=== PATIENT | female | born 1970 | race Caucasian/White ===

== ENCOUNTER 2018-06-03 16:12 | Emergency (ER) | payer BC, SELFPAY ==
[2018-06-03 16:14] VITALS: BP 165/105; PULSE 92; RESP 20; TEMP 36.5; O2SAT 99; BMI 41.1
--- NOTE | 2018-06-03 16:21 | DI.CT.S_ITS ---
PROCEDURE: CT HEAD/BRAIN WO CON INDICATIONS: headache, facial numbness TECHNIQUE: Noncontrast 4.5 mm thick angled axial sections acquired from the foramen magnum to the vertex, with coronal and sagittal reformats. For radiation dose reduction, the following was used: automated exposure control, adjustment of mA and/or kV according to patient size. COMPARISON: None. FINDINGS: Image quality: Excellent. CSF spaces: Basal cisterns are patent. No extra-axial fluid collections. Ventricles are normal in size and shape. Brain: No midline shift. No intracranial masses or hemorrhage. John-white matter interface is normal. Skull and face: Calvarium and visualized facial bones are intact, without suspicious lesions. Sinuses: Mucosal thickening noted in the right maxillary sinus. The mastoids are clear. IMPRESSION: 1. No acute intracranial disease process. 2. Right maxillary sinus mild mucosal thickening. Dictated by: Rhoda Encarnacion MD, PhD on 06/03/2018 at 16:50 Approved by: Rhoda Encarnacion MD, PhD on 06/03/2018 at 16:52
--- NOTE | 2018-06-03 17:09 | ED.NEUROSD ---
HPI - Neuro Symptoms/Deficit General Chief Complaint: Neuro Symptoms/Deficit Stated Complaint: blood pressure issues and facial numbness Time Seen by Provider: 06/03/18 16:59 Source: patient Mode of arrival: ambulatory Limitations: no limitations History of Present Illness HPI Narrative: 47-year-old nonsmoker, otherwise healthy presents with chief complaint sudden-onset occipital headache few hours ago while grocery shopping. She complains only of occipital headache and perhaps some facial numbness. She has elevated blood pressure and had been on medications in the past but has not take any in quite some time. She denies focal neurologic findings such as numbness, tingling or weakness in her extremities. She is absent of any visual or speech troubles. She denies use of blood thinners, fever or any neck pain. Onset (ago): hour(s) History of same: No Severity: mild Quality: tingling (Of face) Relieving factors: none Exacerbating factors: none Context: sudden onset On Anticoagulants: No Associated symptoms: denies other symptoms Related Data Home Medications Medication Instructions Recorded Confirmed celecoxib [Celebrex] 50 mg PO Q DAY #0 02/04/17 Allergies Allergy/AdvReac Type Severity Reaction Status Date / Time morphine [MORPHINE] Allergy Severe emesis, Verified 06/03/18 18:05 dizzy Review of Systems Review of Systems All systems reviewed & are unremarkable except as noted in HPI and below Constitutional Denies chills, Denies fever(s), Reports headache(s), Denies lethargy and Denies weakness Eyes Denies change in vision, Denies eye discharge, Denies irritation and Denies loss of vision ENT Ears, Nose, Mouth, and Throat: Denies change in voice, Reports headache(s), Denies neck pain and Denies sore throat Cardiovascular Denies chest pain, Denies irregular heart rhythm, Denies lightheadedness, Denies palpitations, Denies dyspnea, Denies dyspnea on exertion and Denies orthopnea Respiratory Denies cough, Denies dyspnea, Denies dyspnea on exertion and Denies wheezing Gastrointestinal Gastrointestinal: Denies abdominal pain, Denies change in bowel habits, Denies diarrhea, Denies nausea and Denies vomiting Genitourinary Denies hematuria, Denies flank pain, Denies urinary incontinence and Denies urinary urgency Musculoskeletal Denies neck pain and Reports tingling Integumentary/Breasts Denies pruritus, Denies erythema, Denies rash and Denies wounds Neurologic Denies confusion, Reports headache(s), Denies loss of vision, Reports tingling and Denies weakness Psychiatric Denies anxiety, Denies confusion, Denies depression, Denies homicidal ideation and Denies suicidal ideation Endocrine Denies palpitations Hematologic/Lymphatic Denies easy bruising Allergic/Immunologic Denies wheezing [facility] Social History Smoking Status: Never smoker Exam Narrative Exam Narrative: GENERAL: This is a well-nourished, well-developed patient, in mild distress. HEAD: Atraumatic. Normocephalic. No temporal or scalp tenderness. EYES: Pupils equal round and reactive. Extraocular motions intact. No scleral icterus. No injection or drainage. ENT: Nose without bleeding, purulent drainage or septal hematoma. Throat without erythema, tonsillar hypertrophy or exudate. Uvula midline. Airway patent. NECK: Trachea midline. No JVD or lymphadenopathy. Supple, nontender, no meningeal signs. CARDIOVASCULAR: Regular rate and rhythm without murmurs, gallops, or rubs. RESPIRATORY: Clear to auscultation. Breath sounds equal bilaterally. No wheezes, rales, or rhonchi. GASTROINTESTINAL: Abdomen soft, non-tender, nondistended. No hepato-splenomegaly, or palpable masses. No guarding. EXTREMITIES: No clubbing, cyanosis, or edema. No joint tenderness, effusion, or edema noted. BACK: Nontender without deformity or crepitance. No flank tenderness. NEURO: AOx3. SKIN: No rash or erythema. NIH Stroke Scale 1a. LOC: Patient is alert and keenly responsive (0) 1b. LOC Questions: Patient answers both LOC questions accurately (0) 1c. LOC Commands: Patient performs both tasks correctly (0) 2. Best Gaze: Normal (0) 3. Visual: No visual loss (0) 4. Facial palsy: Normal symmetrical movements (0) 5. Motor arm: No drift (0) 6. Motor leg: No drift (0) 7. Limb ataxia: Absent (0) 8. Sensory: Normal (0) 9. Best language: No aphasia; normal (0) 10. Dysarthria: Normal (0) 11. Extinction and inattention: No abnormality (0) NIHSS: 0 Initial Vital Signs Initial Vital Signs: Vital Signs Temperature 97.7 F 06/03/18 16:14 Pulse Rate 92 H 06/03/18 16:14 Respiratory Rate 20 06/03/18 16:14 Blood Pressure 165/105 H 06/03/18 16:14 Pulse Oximetry 99 06/03/18 16:14 Course Orders Ordered: ED Orders 06/03/18 16:21 CT head/brain wo con Stat 06/03/18 18:20 Basic Metabolic Panel Stat Complete Blood Count AUTO DIFF Stat Discontinued Medications Dexamethasone (Decadron) 10 mg IV NOW ONE Stop: 06/03/18 17:22 Last Admin: 06/03/18 18:06 Dose: 10 mg Sodium Chloride (Normal Saline 0.9%) 1,000 mls @ 1,000 mls/hr IV BOLUS ONE Stop: 06/03/18 18:20 Last Admin: 06/03/18 18:05 Dose: 1,000 mls/hr Ketorolac Tromethamine (Toradol) 15 mg IV NOW ONE Stop: 06/03/18 17:22 Last Admin: 06/03/18 18:06 Dose: 15 mg Metoclopramide HCl (Reglan) 10 mg IV NOW ONE Stop: 06/03/18 17:22 Last Admin: 06/03/18 18:06 Dose: 10 mg Reevaluation(s) Reevaluation #1: Patient has a near complete resolution of symptoms after above-stated therapies Vital Signs - 8 hr 06/03/18 16:14 06/03/18 18:31 Temperature 97.7 F Pulse Rate 92 H 73 Respiratory Rate 20 16 Blood Pressure 165/105 H Blood Pressure [Left Arm] 121/83 Pulse Oximetry 99 97 MDM - Neuro Symptoms/Deficit Differential Diagnosis Likely subarachnoid hemorrhage, cerebrovascular accident, multiple sclerosis and transient cerebral ischemia Medical Records Attestation: I reviewed the patient's medical records. Lab Data Attestation: I reviewed the patient's lab results. Result diagrams: 06/03/18 18:20 06/03/18 18:20 Lab Results 06/03/18 06/03/18 Range/Units 18:20 18:20 WBC 8.7 (4.5-11.0) X10^3/uL RBC 4.77 (4.0-5.2) X10^6/uL Hgb 14.1 (12.0-16.0) g/dL Hct 41.6 (36-46) % MCV 87.1 (80-100) fL MCH 29.5 (26-34) PG MCHC 33.8 (30-36) % RDW 13.0 (11.6-14.8) % Plt Count 214 (150-400) X10^3/uL Neut % (Auto) 63.9 (50-75) % Lymph % (Auto) 28.1 (25-40) % Chase % (Auto) 6.1 (3-14) % Eos % (Auto) 1.4 L (2-4) % Baso % (Auto) 0.5 (0-2) % Neut # (Auto) 5500 (0110-1054) /uL Sodium 145 (137-145) mmol/L Potassium 3.6 (3.4-5.1) mmol/L Chloride 108 H (98-107) mmol/L Carbon Dioxide 25 (22-32) mmol/L BUN 15 (7-17) mg/dL Creatinine 0.70 (0.52-1.04) mg/dL Estimated GFR > 60.0 (>60) mL/min BUN/Creatinine Ratio 21.4 (6-22) Glucose 97 (70-100) mg/dL Calcium 8.9 (8.4-10.2) mg/dL Imaging Data CT scan - head: Radiologist's impression: [place] [address] CT Scan Report Signed Patient: Alberta Madera#: [id number] : 1970Acct:[id number] Age/Sex: 47 / FDate of Service: 06/03/18 Loc: ED Accession Number: [id number] Procedure: CT head/brain wo con Ordering Provider: Gadiel Echevarria D.O. PROCEDURE: CT HEAD/BRAIN WO CON INDICATIONS: headache, facial numbness TECHNIQUE: Noncontrast 4.5 mm thick angled axial sections acquired from the foramen magnum to the vertex, with coronal and sagittal reformats. For radiation dose reduction, the following was used: automated exposure control, adjustment of mA and/or kV according to patient size. COMPARISON: None. FINDINGS: Image quality: Excellent. CSF spaces: Basal cisterns are patent. No extra-axial fluid collections. Ventricles are normal in size and shape. Brain: No midline shift. No intracranial masses or hemorrhage. John-white matter interface is normal. Skull and face: Calvarium and visualized facial bones are intact, without suspicious lesions. Sinuses: Mucosal thickening noted in the right maxillary sinus. The mastoids are clear. IMPRESSION: 1. No acute intracranial disease process. 2. Right maxillary sinus mild mucosal thickening. Dictated by: Rhoda Encarnacion MD, PhD on 06/03/2018 at 16:50 Approved by: Rhoda Encarnacion MD, PhD on 06/03/2018 at 16:52 [facility] Narrative Medical decision making narrative: Subarachnoid hemorrhage considered as an etiology of her headache given sudden onset and severity, however CT was negative only a few hours after onset of symptoms, a time frame in which it is highly sensitive. Furthermore her symptoms improved with migrating control Hypertensive emergency considered as the cause however blood pressure dropped to the 120s with treatment of headache alone. Migraine or a typical migraine considered most likely etiology given response to above-stated therapies Discharge Plan Departure Patient Disposition: Home Clinical Impression: Hypertension, Headache Instructions: DI for Headache Activity Restrictions/Additional Instructions: *You have been diagnosed with [ hypertension and headache ] *What to do: *continue to take medications as directed *Follow up with your primary care provider in 2-3 days, call for an appointment. Let them know you were seen in the Emergency Department and that we ask that you be seen in follow up *Return to ER if you should have any new, worsening or concerning symptom Prescriptions: No Action celecoxib [Celebrex] 50 MG capsule 50 mg PO Q DAY Qty: 0 RF: 0 Referrals: Colette Bennett PA-C [Primary Care Provider] -
--- NOTE | 2018-06-03 18:01 | ED_ITS ---
HPI - Neuro Symptoms/Deficit General Chief Complaint: Neuro Symptoms/Deficit Stated Complaint: blood pressure issues and facial numbness Time Seen by Provider: 06/03/18 16:59 Source: patient Mode of arrival: ambulatory Limitations: no limitations History of Present Illness HPI Narrative: 47-year-old nonsmoker, otherwise healthy presents with chief complaint sudden-onset occipital headache few hours ago while grocery shopping. She complains only of occipital headache and perhaps some facial numbness. She has elevated blood pressure and had been on medications in the past but has not take any in quite some time. She denies focal neurologic findings such as numbness, tingling or weakness in her extremities. She is absent of any visual or speech troubles. She denies use of blood thinners, fever or any neck pain. Onset (ago): hour(s) History of same: No Severity: mild Quality: tingling (Of face) Relieving factors: none Exacerbating factors: none Context: sudden onset On Anticoagulants: No Associated symptoms: denies other symptoms Related Data Home Medications Medication Instructions Recorded Confirmed celecoxib [Celebrex] 50 mg PO Q DAY #0 02/04/17 Allergies Allergy/AdvReac Type Severity Reaction Status Date / Time morphine [MORPHINE] Allergy Severe emesis, Verified 06/03/18 18:05 dizzy Review of Systems Review of Systems All systems reviewed & are unremarkable except as noted in HPI and below Constitutional Denies chills, Denies fever(s), Reports headache(s), Denies lethargy and Denies weakness Eyes Denies change in vision, Denies eye discharge, Denies irritation and Denies loss of vision ENT Ears, Nose, Mouth, and Throat: Denies change in voice, Reports headache(s), Denies neck pain and Denies sore throat Cardiovascular Denies chest pain, Denies irregular heart rhythm, Denies lightheadedness, Denies palpitations, Denies dyspnea, Denies dyspnea on exertion and Denies orthopnea Respiratory Denies cough, Denies dyspnea, Denies dyspnea on exertion and Denies wheezing Gastrointestinal Gastrointestinal: Denies abdominal pain, Denies change in bowel habits, Denies diarrhea, Denies nausea and Denies vomiting Genitourinary Denies hematuria, Denies flank pain, Denies urinary incontinence and Denies urinary urgency Musculoskeletal Denies neck pain and Reports tingling Integumentary/Breasts Denies pruritus, Denies erythema, Denies rash and Denies wounds Neurologic Denies confusion, Reports headache(s), Denies loss of vision, Reports tingling and Denies weakness Psychiatric Denies anxiety, Denies confusion, Denies depression, Denies homicidal ideation and Denies suicidal ideation Endocrine Denies palpitations Hematologic/Lymphatic Denies easy bruising Allergic/Immunologic Denies wheezing [facility] Social History Smoking Status: Never smoker Exam Narrative Exam Narrative: GENERAL: This is a well-nourished, well-developed patient, in mild distress. HEAD: Atraumatic. Normocephalic. No temporal or scalp tenderness. EYES: Pupils equal round and reactive. Extraocular motions intact. No scleral icterus. No injection or drainage. ENT: Nose without bleeding, purulent drainage or septal hematoma. Throat without erythema, tonsillar hypertrophy or exudate. Uvula midline. Airway patent. NECK: Trachea midline. No JVD or lymphadenopathy. Supple, nontender, no meningeal signs. CARDIOVASCULAR: Regular rate and rhythm without murmurs, gallops, or rubs. RESPIRATORY: Clear to auscultation. Breath sounds equal bilaterally. No wheezes , rales, or rhonchi. GASTROINTESTINAL: Abdomen soft, non-tender, nondistended. No hepato-splenomegaly , or palpable masses. No guarding. EXTREMITIES: No clubbing, cyanosis, or edema. No joint tenderness, effusion, or edema noted. BACK: Nontender without deformity or crepitance. No flank tenderness. NEURO: AOx3. SKIN: No rash or erythema. NIH Stroke Scale 1a. LOC: Patient is alert and keenly responsive (0) 1b. LOC Questions: Patient answers both LOC questions accurately (0) 1c. LOC Commands: Patient performs both tasks correctly (0) 2. Best Gaze: Normal (0) 3. Visual: No visual loss (0) 4. Facial palsy: Normal symmetrical movements (0) 5. Motor arm: No drift (0) 6. Motor leg: No drift (0) 7. Limb ataxia: Absent (0) 8. Sensory: Normal (0) 9. Best language: No aphasia; normal (0) 10. Dysarthria: Normal (0) 11. Extinction and inattention: No abnormality (0) NIHSS: 0 Initial Vital Signs Initial Vital Signs: Vital Signs Temperature 97.7 F 06/03/18 16:14 Pulse Rate 92 H 06/03/18 16:14 Respiratory Rate 20 06/03/18 16:14 Blood Pressure 165/105 H 06/03/18 16:14 Pulse Oximetry 99 06/03/18 16:14 Course Orders Ordered: ED Orders 06/03/18 16:21 CT head/brain wo con Stat 06/03/18 18:20 Basic Metabolic Panel Stat Complete Blood Count AUTO DIFF Stat Discontinued Medications Dexamethasone (Decadron) 10 mg IV NOW ONE Stop: 06/03/18 17:22 Last Admin: 06/03/18 18:06 Dose: 10 mg Sodium Chloride (Normal Saline 0.9%) 1,000 mls @ 1,000 mls/hr IV BOLUS ONE Stop: 06/03/18 18:20 Last Admin: 06/03/18 18:05 Dose: 1,000 mls/hr Ketorolac Tromethamine (Toradol) 15 mg IV NOW ONE Stop: 06/03/18 17:22 Last Admin: 06/03/18 18:06 Dose: 15 mg Metoclopramide HCl (Reglan) 10 mg IV NOW ONE Stop: 06/03/18 17:22 Last Admin: 06/03/18 18:06 Dose: 10 mg Reevaluation(s) Reevaluation #1: Patient has a near complete resolution of symptoms after above- stated therapies Vital Signs - 8 hr 06/03/18 16:14 06/03/18 18:31 Temperature 97.7 F Pulse Rate 92 H 73 Respiratory Rate 20 16 Blood Pressure 165/105 H Blood Pressure [Left Arm] 121/83 Pulse Oximetry 99 97 MDM - Neuro Symptoms/Deficit Differential Diagnosis Likely subarachnoid hemorrhage, cerebrovascular accident, multiple sclerosis and transient cerebral ischemia Medical Records Attestation: I reviewed the patient's medical records. Lab Data Attestation: I reviewed the patient's lab results. Result diagrams: 06/03/18 18:20 06/03/18 18:20 Lab Results 06/03/18 06/03/18 Range/Units 18:20 18:20 WBC 8.7 (4.5-11.0) X10^3/uL RBC 4.77 (4.0-5.2) X10^6/uL Hgb 14.1 (12.0-16.0) g/dL Hct 41.6 (36-46) % MCV 87.1 (80-100) fL MCH 29.5 (26-34) PG MCHC 33.8 (30-36) % RDW 13.0 (11.6-14.8) % Plt Count 214 (150-400) X10^3/uL Neut % (Auto) 63.9 (50-75) % Lymph % (Auto) 28.1 (25-40) % Sac % (Auto) 6.1 (3-14) % Eos % (Auto) 1.4 L (2-4) % Baso % (Auto) 0.5 (0-2) % Neut # (Auto) 5500 (9805-7083) /uL Sodium 145 (137-145) mmol/L Potassium 3.6 (3.4-5.1) mmol/L Chloride 108 H (98-107) mmol/L Carbon Dioxide 25 (22-32) mmol/L BUN 15 (7-17) mg/dL Creatinine 0.70 (0.52-1.04) mg/dL Estimated GFR > 60.0 (>60) mL/min BUN/Creatinine Ratio 21.4 (6-22) Glucose 97 (70-100) mg/dL Calcium 8.9 (8.4-10.2) mg/dL Imaging Data CT scan - head: Radiologist's impression: [place] [address] CT Scan Report Signed Patient: Alberta Madera#: [id number] : 1970Acct:[id number] Age/Sex: 47 / FDate of Service: 06/03/18 Loc: ED Accession Number: [id number] Procedure: CT head/brain wo con Ordering Provider: Gadeil Echevarria D.O. PROCEDURE: CT HEAD/BRAIN WO CON INDICATIONS: headache, facial numbness TECHNIQUE: Noncontrast 4.5 mm thick angled axial sections acquired from the foramen magnum to the vertex, with coronal and sagittal reformats. For radiation dose reduction, the following was used: automated exposure control, adjustment of mA and/or kV according to patient size. COMPARISON: None. FINDINGS: Image quality: Excellent. CSF spaces: Basal cisterns are patent. No extra-axial fluid collections. Ventricles are normal in size and shape. Brain: No midline shift. No intracranial masses or hemorrhage. John-white matter interface is normal. Skull and face: Calvarium and visualized facial bones are intact, without suspicious lesions. Sinuses: Mucosal thickening noted in the right maxillary sinus. The mastoids are clear. IMPRESSION: 1. No acute intracranial disease process. 2. Right maxillary sinus mild mucosal thickening. Dictated by: Rhoda Encarnacion MD, PhD on 06/03/2018 at 16:50 Approved by: Rhoda Encarnacion MD, PhD on 06/03/2018 at 16:52 [facility] Narrative Medical decision making narrative: Subarachnoid hemorrhage considered as an etiology of her headache given sudden onset and severity, however CT was negative only a few hours after onset of symptoms, a time frame in which it is highly sensitive. Furthermore her symptoms improved with migrating control Hypertensive emergency considered as the cause however blood pressure dropped to the 120s with treatment of headache alone. Migraine or a typical migraine considered most likely etiology given response to above-stated therapies Discharge Plan Departure Patient Disposition: Home Clinical Impression: Hypertension, Headache Instructions: DI for Headache Activity Restrictions/Additional Instructions: *You have been diagnosed with [ hypertension and headache ] *What to do: *continue to take medications as directed *Follow up with your primary care provider in 2-3 days, call for an appointment. Let them know you were seen in the Emergency Department and that we ask that you be seen in follow up *Return to ER if you should have any new, worsening or concerning symptom Prescriptions: No Action celecoxib [Celebrex] 50 MG capsule 50 mg PO Q DAY Qty: 0 RF: 0 Referrals: Colette Bennett PA-C [Primary Care Provider] -
[2018-06-03] MEDS: SODIUM CHLORIDE 0.9% 1,000 ML 1000 ML IV (18:05)
[2018-06-03] MEDS: DEXAMETHASONE 10 MG/ML VIAL IV (18:06)
[2018-06-03] MEDS: KETOROLAC 60 MG/2 ML VIAL 15 MG IV (18:06)
[2018-06-03] MEDS: METOCLOPRAMIDE 10 MG/2 ML INJ IV (18:06)
[2018-06-03 18:29] LABS: Add Manual Diff / Slide Review NO; Basophils Percent Auto 0.5 % (0-2); Eosinophils Percent Auto 1.4 % (2-4); Hematocrit 41.6 % (36-46); Hemoglobin 14.1 g/dL (12.0-16.0); Lymphocytes Percent Auto 28.1 % (25-40); Mean Corpuscular HGB Conc 33.8 % (30-36); Mean Corpuscular Hemoglobin 29.5 PG (26-34); Mean Corpuscular Volume 87.1 fL (80-100); Monocytes Percent Auto 6.1 % (3-14); Neutrophils Absolute Auto 5500 /uL (3000-5900); Neutrophils Percent Auto 63.9 % (50-75); Platelet Count 214 X10^3/uL (150-400); Red Blood Cell Count 4.77 X10^6/uL (4.0-5.2); White Blood Cell Count 8.7 X10^3/uL (4.5-11.0)
[2018-06-03 18:31] VITALS: BP 121/83; PULSE 73; RESP 16; O2SAT 97
[2018-06-03 18:48] LABS: BUN Creatinine Ratio 21.4 (6-22); Blood Urea Nitrogen 15 mg/dL (7-17); Calcium 8.9 mg/dL (8.4-10.2); Carbon Dioxide 25 mmol/L (22-32); Chloride 108 mmol/L (98-107); Estimated Glomerular Filt Rate > 60.0 mL/min (>60); Glucose 97 mg/dL (70-100); HEMOLYSIS 25 (0-50); Potassium 3.6 mmol/L (3.4-5.1); Sodium 145 mmol/L (137-145)
== END 2018-06-03 19:25 | disposition home or self-care (01) ==
PROVIDERS: Emergency Provider Emergency Medicine; Family Provider Physician Assistant Medical; PCP Physician Assistant Medical
DX: I10 Essential (primary) hypertension (principal); R51 Headache
CPT/HCPCS: 70450; 80048; 85025; 96361; 96374; 96375; 99283; 99284; 99291; J1100; J1885; J2765

== ENCOUNTER → 2019-06-22 14:28 | Outpatient (CLI) | payer BC, SELFPAY ==
--- NOTE | 2019-06-22 | DI.CT.S_ITS ---
PROCEDURE: CT ABDOMEN PELVIS W CON INDICATIONS: Left upper quadrant pain/splenomegaly. TECHNIQUE: After the administration of oral and intravenous contrast, 5 mm thick sections acquired from the diaphragms to the symphysis. 5 mm thick coronal and sagittal reformats were performed. For radiation dose reduction, the following was used: automated exposure control, adjustment of mA and/or kV according to patient size. COMPARISON: None. FINDINGS: Image quality: Suboptimal due to IV infiltration and decreased contrast enhancement.. ABDOMEN: Lung bases: Lung bases are clear. Heart size is normal. Solid organs: Liver is normal in size and enhancement. Gallbladder unremarkable except for a tiny punctate calculus on image 31 series 2. Biliary system is non-dilated. Pancreas enhances normally. Spleen is mildly enlarged measuring 11.9 cm in the cephalocaudad dimension No adrenal nodules. Kidneys are normal in size and enhancement, without hydronephrosis. Peritoneum and bowel: Stomach, small bowel, and colon loops are normal in caliber and wall thickness. No free fluid or air. Nodes and vessels: No retroperitoneal or mesenteric adenopathy. Aorta and inferior vena cava are normal in caliber. Miscellaneous: No ventral hernias. PELVIS: Genitourinary: Bladder wall thickness is normal. Miscellaneous: No inguinal hernias or adenopathy. Bones: No suspicious bony lesions. No vertebral body compression fractures. IMPRESSION: Borderline enlarged spleen as above. No acute process. Incidental punctate cholelithiasis. Dictated by: Nasir Moy M.D. on 06/22/2019 at 16:38 Approved by: Nasir Moy M.D. on 06/22/2019 at 16:44
== END ==
PROVIDERS: PCP Physician Assistant; Visit Provider Physician Assistant
DX: R10.12 Left upper quadrant pain (principal); R16.1 Splenomegaly, not elsewhere classified; K80.20 Calculus of gallbladder without cholecystitis without obstruction
CPT/HCPCS: 74177; Q9967

== ENCOUNTER 2019-06-29 17:36 | Emergency (ER) | payer BC, SELFPAY ==
[2019-06-29 17:49] VITALS: BP 144/97; PULSE 110; RESP 24; TEMP 37.7; O2SAT 98; BMI 40.3
--- NOTE | 2019-06-29 17:54 | DI.RAD.S_ITS ---
PROCEDURE: XR CHEST 2V INDICATIONS: cough/sob/rib pain TECHNIQUE: 2 views of the chest were acquired. COMPARISON: [facility], CT, CT ABDOMEN PELVIS W CON, 06/22/2019, 15:19. FINDINGS: Surgical changes and devices: None. Lungs and pleura: Lungs are clear. No pleural effusions or pneumothorax. Mediastinum: Mediastinal contours are normal. Heart size is normal. Bones and chest wall: No suspicious bony abnormalities. Soft tissues appear unremarkable. IMPRESSION: No evidence acute pulmonary process. Dictated by: Diogo Maravilla M.D. on 06/29/2019 at 19:04 Approved by: Diogo Maravilla M.D. on 06/29/2019 at 19:05
--- NOTE | 2019-06-29 18:12 | ED.URI ---
HPI - URI/Sore Throat <LIZZY Barone - Last Filed: 06/29/19 22:15> General Chief Complaint: Upper Respiratory Symptoms Stated Complaint: coughing couple of days,flu like symptoms,rib pain Time Seen by Provider: 06/29/19 17:47 Source: patient Mode of arrival: Ambulatory Limitations: no limitations History of Present Illness HPI Narrative: This is a 48-year-old female, nonsmoker, who presents to ED with her daughter with chief complain of cough for last 2-3 days with right-sided rib and back pain from coughing. Patient reports mostly she is having dry nonproductive cough with occasional productive cough. She woke up in the middle of the night with cold sweats and extreme nausea and had an episode of diarrhea as well. Patient felt she had fever but had not taken extra temperature. Patient also reports right-sided cervical lymph nodes tenderness with the right ear and throat pain and some facial tenderness Patient's daughter also has been coughing but is not as ill as herself. She feels dizzy with cough and states can't catch my breath. Patient taken Motrin 4:00 a.m. this morning. She denies any history of respiratory or pulmonary problems and had taken flu immunization 2 weeks ago. Related Data Home Medications Medication Instructions Recorded Confirmed celecoxib [Celebrex] 50 mg PO Q DAY #0 02/04/17 Previous Rx's Medication Instructions Recorded albuterol sulfate 2 inhalation INHALATION Q4-6H PRN 06/29/19 #18 gram doxycycline hyclate 100 mg PO BID 5 Days #10 tab 06/29/19 prednisone 40 mg PO DAILY 4 Days #8 tab 06/29/19 Allergies Allergy/AdvReac Type Severity Reaction Status Date / Time morphine [MORPHINE] Allergy Severe emesis, Verified 06/03/18 18:05 dizzy Review of Systems <LIZZY Barone - Last Filed: 06/29/19 22:15> Review of Systems Narrative: General: See HPI HEENT: See HPI Respiratory: See HPI Cardiovascular: See HPI Gastrointestinal: Denies nausea, vomiting, abdominal pain, diarrhea, constipation, melena. : Denies dysuria, frequency, incontinence, hematuria, urinary retention. Musculoskeletal: Denies weakness, joint pain or bony pain. Skin: Denies rash, skin lesions, or other. Neurologic: Reports dizziness with cough. Denies weakness, headache, numbness, change in speech, confusion, seizures, incoordination. Psychiatric: No concerning psychosocial issues. 12-point review of systems is negative except for those stated above. Patient History <LIZZY Barone - Last Filed: 06/29/19 22:15> Surgical History No pertinent past surgical history (Acute) Social History Smoking Status: Never smoker Substance Use Type: does not use Exam <LIZZY Barone - Last Filed: 06/29/19 22:15> Narrative Exam Narrative: GEN: Alert, oriented x 3, well appearing and nourished, appears to be tired and weak. Head: Normal cephalic, atraumatic. No scalp or temporal tenderness, palpable mass or rash. EYES: Pupils are equal, round, and reactive to light and accommodation. Extraocular muscles are intact bilaterally. There is no subconjunctival hemorrhage, exudate and sclera non-icteric. ENT: Bilateral auditory canals and tympanic membranes clear. Hearing grossly intact. Nose without bleeding, purulent discharge or deviation. Facial sinuses mild tenderness on right-sided cheek. No edema or erythema noted on cheeks. Mucous membrane moist, no mucosal lesion. Throat without erythema, tonsillar hypertrophy or exudate. Uvula in midline, airway patent. Neck: Trachea in midline. No JVD, tender to palpate on right side cervical lymph nodes with swelling. No masses or thyroid megaly. Supple, non-tender and no meningeal signs. CARDIAC: Normal regular rate and tachycardia without murmurs, gallops, or rubs. No chest wall tenderness. No peripheral edema, cyanosis or pallor. Capillary refill is less than 2 seconds. RESPIRATORY: Audible wheezing. Expiratory wheezing in all lobes with decreased breath sounds in bilateral lower lobes. Witnessed Frequent nonproductive cough during exam. No rales, rhonci, stridor, respiratory distress, increase work of breathing, or accessary muscle used. ABD: Abdomen soft, nontender and non-distended. No guarding or rebound tenderness to palpate. Bowel sounds are normal in all 4 quadrants. There is no palpable masses or organomegaly. EXT: Full painless ROM of all extremities with no loss of sensation, strength, effusion or edema. SKIN: Warm, dry, normal color for patient. No erythema, lesions or rash over visible areas. BACK: Nontender without deformity or crepitance. No flank tenderness. NEUROLOGICAL: Alert and oriented to place, time and person. Sensation and motor function intact bilaterally. No facial droops, dysphasia. PSYCHIATRIC: Good judgement and reason, without hallucinations, abnormal affect or abnormal behaviors during the examination. Initial Vital Signs Initial Vital Signs: Vital Signs Temperature 99.9 F H 06/29/19 17:49 Pulse Rate 110 H 06/29/19 17:49 Respiratory Rate 24 06/29/19 17:49 Blood Pressure 144/97 H 06/29/19 17:49 Pulse Oximetry 98 06/29/19 17:49 <Gadiel Echevarria DO - Last Filed: 06/29/19 23:43> Initial Vital Signs Initial Vital Signs: Vital Signs Temperature 99.9 F H 06/29/19 17:49 Pulse Rate 110 H 06/29/19 17:49 Respiratory Rate 24 06/29/19 17:49 Blood Pressure 144/97 H 06/29/19 17:49 Pulse Oximetry 98 06/29/19 17:49 Scores <LIZZY Barone - Last Filed: 06/29/19 22:15> GCS Barry coma scale eye opening: Spontaneous Barry coma scale verbal response: Orientated Barry coma scale motor response: Obey commands Barry coma scale total score: 15 Course <LIZZY Barone - Last Filed: 06/29/19 22:15> Orders Ordered: ED Orders 06/29/19 17:15 FLU A and B [Influenza A and B by PCR Rapid] Stat 06/29/19 17:54 Chest [XR chest 2V] Stat Discontinued Medications Acetaminophen (Tylenol) 650 mg PO NOW ONE Stop: 06/29/19 18:13 Last Admin: 06/29/19 18:53 Dose: 650 mg Documented by: NORA Albuterol (Ventolin) 2.5 mg INH NOW ONE Stop: 06/29/19 19:26 Last Admin: 06/29/19 19:45 Dose: 2.5 mg Documented by: GEORGIANA Albuterol/Ipratropium (Duoneb) 3 ml INH NOW ONE Stop: 06/29/19 18:13 Last Admin: 06/29/19 18:29 Dose: 3 ml Documented by: VIKTORIA Doxycycline Hyclate (Vibramycin) 100 mg PO NOW ONE Stop: 06/29/19 19:56 Last Admin: 06/29/19 20:07 Dose: 100 mg Documented by: NORA Ibuprofen (Advil) 800 mg PO NOW ONE Stop: 06/29/19 18:13 Last Admin: 06/29/19 18:53 Dose: 800 mg Documented by: NORA Prednisone (Deltasone) 40 mg PO NOW ONE Stop: 06/29/19 19:56 Last Admin: 06/29/19 20:07 Dose: 40 mg Documented by: NORA Vital Signs Vital signs: Vital Signs - 8 hr 06/29/19 17:49 06/29/19 18:29 06/29/19 19:41 Temperature 99.9 F H 98.1 F Pulse Rate 110 H 106 H 90 Respiratory Rate 24 20 18 Blood Pressure 144/97 H Blood Pressure [Left Arm] 117/80 Pulse Oximetry 98 96 97 06/29/19 19:45 Temperature Pulse Rate 90 Respiratory Rate 16 Blood Pressure Blood Pressure [Left Arm] Pulse Oximetry 96 <Gadiel Echevarria DO - Last Filed: 06/29/19 23:43> Orders Ordered: ED Orders 06/29/19 17:15 FLU A and B [Influenza A and B by PCR Rapid] Stat 06/29/19 17:54 Chest [XR chest 2V] Stat Discontinued Medications Acetaminophen (Tylenol) 650 mg PO NOW ONE Stop: 06/29/19 18:13 Last Admin: 06/29/19 18:53 Dose: 650 mg Documented by: NORA Albuterol (Ventolin) 2.5 mg INH NOW ONE Stop: 06/29/19 19:26 Last Admin: 06/29/19 19:45 Dose: 2.5 mg Documented by: GEORGIANA Albuterol/Ipratropium (Duoneb) 3 ml INH NOW ONE Stop: 06/29/19 18:13 Last Admin: 06/29/19 18:29 Dose: 3 ml Documented by: VIKTORIA Doxycycline Hyclate (Vibramycin) 100 mg PO NOW ONE Stop: 06/29/19 19:56 Last Admin: 06/29/19 20:07 Dose: 100 mg Documented by: NORA Ibuprofen (Advil) 800 mg PO NOW ONE Stop: 06/29/19 18:13 Last Admin: 06/29/19 18:53 Dose: 800 mg Documented by: NORA Prednisone (Deltasone) 40 mg PO NOW ONE Stop: 06/29/19 19:56 Last Admin: 06/29/19 20:07 Dose: 40 mg Documented by: NORA Vital Signs Vital signs: Vital Signs - 8 hr 06/29/19 17:49 06/29/19 18:29 06/29/19 19:41 Temperature 99.9 F H 98.1 F Pulse Rate 110 H 106 H 90 Respiratory Rate 24 20 18 Blood Pressure 144/97 H Blood Pressure [Left Arm] 117/80 Pulse Oximetry 98 96 97 06/29/19 19:45 Temperature Pulse Rate 90 Respiratory Rate 16 Blood Pressure Blood Pressure [Left Arm] Pulse Oximetry 96 MDM - URI/Sore Throat <LIZZY Barone - Last Filed: 06/29/19 22:15> Differential Diagnosis Differential diagnosis: Likely upper respiratory infection, sinusitis, bronchitis, influenza and other (Pneumonia) Medical Records Attestation: I reviewed the patient's medical records. Lab Data Attestation: I reviewed the patient's lab results. Labs: Lab Results 06/29/19 Range/Units 17:15 Influenza A & B (PCR) Negative (Negative) Imaging Data Chest x-ray: Radiologist's impression: [address] [address] XRay Report Signed Patient: Alberta MaderaMR#: [id number] : 1970Acct:[id number] Age/Sex: 48 / FDate of Service: 06/29/19 Loc: ED Accession Number: [id number] Procedure: XR chest 2V Ordering Provider: Nick Morales PROCEDURE: XR CHEST 2V INDICATIONS: cough/sob/rib pain TECHNIQUE: 2 views of the chest were acquired. COMPARISON: [facility], CT, CT ABDOMEN PELVIS W CON, 06/22/2019, 15:19. FINDINGS: Surgical changes and devices: None. Lungs and pleura: Lungs are clear. No pleural effusions or pneumothorax. Mediastinum: Mediastinal contours are normal. Heart size is normal. Bones and chest wall: No suspicious bony abnormalities. Soft tissues appear unremarkable. IMPRESSION: No evidence acute pulmonary process. Dictated by: Diogo Maravilla M.D. on 06/29/2019 at 19:04 Approved by: Diogo Maravilla M.D. on 06/29/2019 at 19:05 [facility] Narrative Medical decision making narrative: This is a 48-year-old female who presents to ED with self-reported sore throat, facial pain, right-sided cervical lymph node swelling, fever, chills, cold sweats with breathing difficulty, dizziness with cough and wheezing for last 2 days. Patient reports cough has been so severe that her ribs and back is hurting. Patient has no known history of pulmonary disease. Flu swab test was negative. X-ray showed test does not show obvious infiltrate today. DuoNeb and albuterol nebulizer treatment was provided and the patient found this has been helpful. However, Patient continued to have mild expiratory wheezing after the 2 courses of nebulizer treatment. Patient provided with oral hydration while in the ED with Tylenol and Motrin for discomfort. Patient's vital signs has been improved and she was re-evaluated several times while in ED and reports improved her symptoms. The patient was treated with 5 day course of Doxycylen, prednisone, and albuterol inhaler for atypical pneumona/bronchitis. Possible side effects of prednisone were discussed with the patient. Return precautions were discussed with the patient and patient verbalized understanding and advised to follow up with her primary care physician in 2-3 days. Patient agrees with treatment plan and no further questions were expressed at this time. <Gadiel Echevarria DO - Last Filed: 06/29/19 23:43> Lab Data Labs: Lab Results 06/29/19 Range/Units 17:15 Influenza A & B (PCR) Negative (Negative) Discharge Plan Departure Patient Disposition: Home Clinical Impression: Pneumonia Qualifiers: Pneumonia type: due to unspecified organism Laterality: unspecified laterality Lung location: unspecified part of lung Qualified Code(s): J18.9 - Pneumonia, unspecified organism Discharge Date/Time: 06/29/19 20:45 Instructions: DI for Atypical Pneumonia Activity Restrictions/Additional Instructions: You have been diagnosed with [atypical pneumonia. You are being treated with antibiotic medication secondary to her symptoms such as fever and chills with cough, nausea and wheezing. X-ray test does not show pulmonary process today.]. What to do: *Take your medications as directed. Please take Doxycyclen twice a day for next 5 days. Use albuterol inhaler as needed for short of breath and wheezing. Steroids for next 4 days once a day course. Please ensure you complete a course of antibiotic medication once you start. Please increase oral hydration. You also can take [id number] Tylenol and or Motrin as needed for fever and discomfort. *Follow up with your primary care provider in 2-3 days, call for an appointment. Let them know you were seen in the ED and that we asked you to be seen in follow up. *Return to ED if you have any new, worsening, or concerning symptoms, such as [chest pain, breathing difficulty, unable to tolerate fluids, or any acute concerns]. Prescriptions: New doxycycline hyclate 100 mg tablet 100 mg PO BID 5 Days Qty: 10 RF: 0 albuterol sulfate 90 mcg/actuation HFA aerosol inhaler 2 inhalation INHALATION Q4-6H PRN (Reason: shortness of breath or wheezing) Qty: 18 RF: 0 prednisone 20 mg tablet 40 mg PO DAILY 4 Days Qty: 8 RF: 0 No Action celecoxib [Celebrex] 50 MG capsule 50 mg PO Q DAY Qty: 0 RF: 0 Referrals: Ashley Tran PA-C [Primary Care Provider] -
[2019-06-29 18:29] VITALS: PULSE 106; RESP 20; O2SAT 96
[2019-06-29] MEDS: ALBUTEROL/IPRATROPIUM 3 ML AMPUL INH (18:29)
[2019-06-29] MEDS: ACETAMINOPHEN 325 MG TABLET 650 MG PO (18:53)
[2019-06-29] MEDS: IBUPROFEN 400 MG TABLET 800 MG PO (18:53)
[2019-06-29 19:41] VITALS: BP 117/80; PULSE 90; RESP 18; TEMP 36.7; O2SAT 97
[2019-06-29 19:45] VITALS: PULSE 90; RESP 16; O2SAT 96
[2019-06-29] MEDS: ALBUTEROL 2.5 MG/3 ML NEB (ADULT) INH (19:45)
[2019-06-29 19:54] LABS: Influenza A and B by PCR Rapid Negative (Negative)
[2019-06-29] MEDS: predniSONE 20 MG TABLET 40 MG PO (20:07)
[2019-06-29] MEDS: DOXYCYCLINE HYCLATE 100 MG TABLET PO (20:07)
--- OUTSIDE RECORDS SUMMARY | 2021-05-18 08:30 | XMS_ITS | Referral Summary ---
:1970 Author Organization [address] [address] Care Team Providers Name Role Phone Zayra Primary Care Provider Reason for Referral Consultation (Routine) - Authorized Specialty Diagnoses / Procedures Referred By Contact Refer red To Contact Sleep Medicine Diagnoses Snoring Sara Ding DO [address] [facility] [address] [place], [place] [phone] Referral ID Status Reason Start Expiration Visits Visits Date Date Requested Authorized [id number] Authorized Specialty 05/01/2021 04/26/2022 1 1 Services Required urable Medical Equipment (Routine) - Authorized Specialty Diagnoses / Procedures Referred By Contact Refer red To Contact Cardiology Diagnoses Palpitations Sara Ding [facility] Cardiology Procedures Cardiac event monitor [address] [place] [address] [place] [address], [address] [place], [place] [address] [place] [address] Phone: Fax: Referral ID Status Reason Start Date Expiration Date Visits V isits Requested Authorized [id number] Authorized 05/01/2021 04/26/2022 1 1 Diagnostic Imaging (Routine) - Authorized Specialty Diagnoses / Procedures Referred By Contact Refer red To Contact Radiology Diagnoses Chest pain, unspecified type Sara Ding DO [facility] Special Imaging Procedures NM CARDIAC STRESS TEST EXERCISE [address] [phone] Referral ID Status Reason Start Expiration Visits Visits Date Date Requested Authorized [id number] Authorized Specialty 05/15/2021 06/13/2021 4 4 Services Required Diagnostic Imaging (Routine) - Authorized Specialty Diagnoses / Procedures Referred By Contact Refer red To Contact Radiology Diagnoses SOB (shortness of breath) Sara Ding DO [facility] Special Imaging Procedures ECHOCARDIOGRAM COMPLETE [address] [place] [address] [address] [phone] Referral ID Status Reason Start Date Expiration Date Visits V isits Requested Authorized [id number] Authorized 05/01/2021 04/26/2022 1 1 Reason for Visit Reason Comments Consult palpitations Consultation (Routine) - Closed Specialty Diagnoses / Procedures Referred By Contact Refer red To Contact Diagnoses Palpitations Angelica Iverson CARDIOLOGY Procedures ID OFFICE OUTPATIENT VISIT [address] [place] [address], [facility] [address] [place] [address] [place] [address] Phone: [phone] Fax: Referral ID Status Reason Start Date Expiration Date Visits Requ ested Visits Authorized [id number] Closed 03/05/2021 03/05/2022 1 1 Encounter Details Date Type Department Care Team Description 05/01/2021 Office Visit [facility] Sara Ding ions (Primary Dx); Clinics Cardiology E., DO Essential hypertension; [place] [address] [place] [address] Dyslipidemia; [address] BMI 40.0-44.9, adult ([facility]); D Geovanna Saavedra ND Chest pain, unspecified type ; [place] Iniguez [id number] SOB (shortness of breath); [id number] Other chest pain; Snoring; [phone] Diabetes [facility] type II, non insulin dependent ([facility]) (Fax) Allergies Active Allergy Reactions Severity Noted Date Comments Morphine 03/08/2016 documented as of this encounter (statuses as of 05/15/2021) Medications Medication Sig Dispensed Refills Start Date End Date Status albuterol HFA (ProAir) inhale 2 puffs by 0 1 Active 90 mcg/actuation mouth every 4 inhaler hours if needed for wheezing furosemide (LASIX) 20 Take 10 mg by 0 01/31/2021 Active mg tablet mouth daily gabapentin (NEURONTIN) Take 1 capsule by 0 1 Active 300 mg capsule mouth 3 (three) times a day Can take 2 at a time if needed lisinopriL (PRINIVIL) Take 1 tablet by 0 03/29/2021 Active 10 mg tablet mouth daily metFORMIN XR Take 1 tablet by 0 03/28/2021 Active (GLUCOPHAGE-XR) 500 mg mouth nightly 24 hr tablet methocarbamoL (ROBAXIN) take 1 tablet by 0 1 Active 500 mg tablet mouth three times a day if needed for muscle spasm metoprolol succinate XL Take 25 mg by 0 01/26/2021 Active (TOPROL-XL) 50 mg 24 hr mouth 2 (two) tablet times a day documented as of this encounter (statuses as of 05/15/2021) Active Problems No known active problemsdocumented as of this encounter (statuses as of 05/15/2021) Social History Tobacco Use Types Packs/Day Years Used Date Never Smoker Smokeless Tobacco: Never Used Sex Assigned at Date Recorded Not on file Job Start Date Occupation Industry Not on file Not on file Not on file documented as of this encounter Last Filed Vital Signs Vital Sign Reading Time Taken Comments Blood Pressure 112/76 05/01/2021 3:13 PM PDT Pulse 77 05/01/2021 3:13 PM PDT Temperature - - Respiratory Rate - - Oxygen Saturation - - Inhaled Oxygen Concentration - - Weight 118 kg (260 lb 3.2 oz) 05/01/2021 3:13 PM PDT Height 167.6 cm (5' 6) 05/01/2021 3:13 PM PDT Body Mass Index 42 05/01/2021 3:13 PM PDT documented in this encounter Progress Notes Sara Ding DO - 05/01/2021 3:20 PM PDT Do not take your metoprolol the morning of your stress test; you can take it after the test. ara Ding DO - 05/01/2021 3:20 PM PDT Subjective Patient ID: Alberta Madera is a 50 y.o. female that had concerns including Consult (palpitations). HPI: Chest pain: Pressure or ache that is not necessarily exertional, occasionally radiates to the throatthat lasts about 2 minutes. SOB: More ESCAMILLA with LE swelling. No orthopnea. Palpitations: Heart feels like it going to beat out of her chest at least once every 2 weeks. Occasional dizziness, no syncope. ???08/04/2018 exercise nuclear stress test poor exercise capacity, nuclear report is inconsistent inthat body states no convincing fixed or reversible perfusion defects however impression states based on computer analysis, mildly abnormal study with moderate ischemia. ???03/12/2016 30-day event monitor one patient triggered event associated with ventricular couplet, 2 other triggered events occurred with sinus rhythm. ???01/06/2016 echo mild concentric LVH, EF 60 to 65%, normal RV function, mild TR, normal PASP. Snoring: Daughter reports apnea. Daytime fatigue. Hypertension: On lisinopril 10 mg daily, metoprolol succinate 25 mg twice daily, furosemide 10 mg daily. Dyslipidemia: On no meds for this. 02/2021 hemoglobin 13, hematocrit 42, platelets 205 07/2020 hemoglobin 13, hematocrit 43, platelets 223, BUN 14, creatinine 0.8, glucose 137, AST 49, ALT 51, total cholesterol 211, HDL 35, LDL 125, A1c 6.6 Past Medical History: Diagnosis Date ??? Asthma ??? Dyslipidemia ??? Essential hypertension ??? GERD (gastroesophageal reflux disease) ??? Type 2 diabetes mellitus (CMS/HCC) Past Surgical History: Procedure Laterality Date ??? HYSTERECTOMY Family History Problem Relation Age of Onset ??? Heart failure Mother ??? Asthma Mother ??? Heart disease Father Social History Socioeconomic History ??? Marital status: Legally Spouse name: Not on file ??? Number of children: Not on file ??? Years of education: Not on file ??? Highest education level: Not on file Tobacco Use ??? Smoking status: Never Smoker ??? Smokeless tobacco: Never Used Allergies Allergen Reactions ??? Morphine Current Medication List Sig albuterol HFA (ProAir) 90 mcg/actuation inhaler inhale 2 puffs by mouth every 4 hours if needed forwheezing furosemide (LASIX) 20 mg tablet Take 10 mg by mouth daily gabapentin (NEURONTIN) 300 mg capsule Take 1 capsule by mouth 3 (three) times a day Can take 2 at atime if needed lisinopriL (PRINIVIL) 10 mg tablet Take 1 tablet by mouth daily metFORMIN XR (GLUCOPHAGE-XR) 500 mg 24 hr tablet Take 1 tablet by mouth nightly methocarbamoL (ROBAXIN) 500 mg tablet take 1 tablet by mouth three times a day if needed for musclespasm metoprolol succinate XL (TOPROL-XL) 50 mg 24 hr tablet Take 25 mg by mouth 2 (two) times a day Review of Systems Constitutional: Positive for fatigue. Negative for unexpected weight change. Eyes: Negative for visual disturbance. Respiratory: Positive for shortness of breath. Cardiovascular: Positive for chest pain, palpitations and leg swelling. Gastrointestinal: Negative for blood in stool. Heartburn Endocrine: Positive for polydipsia. Genitourinary: Negative for hematuria. Musculoskeletal: Negative for myalgias. Skin: Negative for rash. Neurological: Positive for dizziness. Hematological: Does not bruise/bleed easily. Psychiatric/Behavioral: The patient is not nervous/anxious. Objective BP 112/76 (BP Location: Left arm, Patient Position: Sitting) Pulse 77 Ht 1.676 m Wt 118 kg BMI 42.00 kg/m?? Physical Exam: General Appearance: Well-nourished, pleasant, cooperative, no apparent distress HEET: Normocephalic atraumatic, EOMI, no scleral icterus, no arcus, tongue midline, mucous membranesmoist, good dentition Neck: No obvious mass, supple Respiratory: Good aeration, clear to auscultation and percussion, no rales or wheeze Cardiovascular: Nondisplaced PMI, RRR, normal S1 and normal S2, no murmurs/rubs/gallops, JVP 4-5 cm,no JVD Pulses: Carotid and femoral pulses 2+ bilaterally without bruit, dorsalis pedis and anterior tibial pulses 2+ bilaterally Abdomen: Soft, nondistended, nontender, no heptosplenomegally, no hepatojugular reflux, normal bowelsounds without bruits Extremities: +1 BL edema to the knees, no clubbing, cyanosis Neuro: Alert, no facial droop, tongue midline, no gross motor deficits Psych: Appropriate affect, normal mentation and memory Skin: Warm and dry, no rashes on face, neck, and lower extremities Assessment/Plan Diagnoses and all orders for this visit: Palpitations - ECG 12 Lead (Clinic - Same Day) - Cardiac event monitor; Future Essential hypertension - Comprehensive Metabolic Panel; Future Dyslipidemia - Lipid panel; Future BMI 40.0-44.9, adult ([facility]) - Thyroid Stimulating Hormone, Reflex to Free T4; Future Chest pain, unspecified type - NM CARDIAC STRESS TEST EXERCISE; Future SOB (shortness of breath) - ECHOCARDIOGRAM COMPLETE; Future - Complete blood count with diff; Future Other chest pain Snoring - XTRNL Referral to Sleep Medicine Diabetes mellitus type II, non insulin dependent ([facility]) - Hemoglobin A1c; Future Assessment/Plan Comments: Chest pain: Atypical symptoms. ECG today normal sinus rhythm. Multiple risk factors including hypertension, dyslipidemia and diabetes. Will order an exercise nuclear stress test. Shortness of breath: Dyspnea on exertion. Lungs are clear however she does have 1+ lower extremity edema to the knees. We will order an echocardiogram. I advised her to use compression stockings which she has at home. Reluctant to change the diuretic without knowing her renal function and potassium levels so I am ordering full fasting blood work. Palpitations: Not occurring that often. I will order a 30-day event monitor. Snoring: Daytime fatigue. Daughter reports apnea. Will refer to sleep medicine. Dyslipidemia: Elevated LDL as of 07/2020. Will recheck. Electronically signed by Sara Ding DO 05/01/2021 3:46 PM documented in this encounter Plan of Treatment Upcoming Encounters Date Type Specialty Care Team Description 08/07/2021 Office Visit Cardiology Sara Ding DO [address] [place] [address] (Wo rk) Scheduled Orders Name Type Priority Associated Diagnoses Order S chedule ECHOCARDIOGRAM Imaging Routine SOB (shortness of Expected : COMPLETE breath) 05/01/2021, Expires: 05/01/2023 NM CARDIAC STRESS TEST Imaging Routine Chest pain, Expec jelly: EXERCISE unspecified type 05/01/2021, Expires: 07/31/2022 Cardiac event monitor Cardiac Services Routine Palpitations 1 Occurrences starting 05/01/2021 unti l 05/01/2023 Comprehensive Lab Routine Essential Expected: Metabolic Panel hypertension 05/01/2021, Expires: 05/01/2022 Lipid panel Lab Routine Dyslipidemia Expected: 05/01/2021, Expires: 05/01/2022 Complete blood count Lab Routine SOB (shortness of Ex pected: with diff breath) 05/01/2021, Expires: 05/01/2022 Thyroid Stimulating Lab Routine BMI 40.0-44.9, adult 1 Occurrences Hormone, Reflex to ([facility]) starting Free T4 05/01/2021 unti l 05/01/2022 Hemoglobin A1c Lab Routine Diabetes mellitus 1 Occurr ences type II, non insulin startin g dependent ([facility]) 05/01/20 21 until 05/01/2022 Scheduled Referrals Name Type Priority Associated Diagnoses Order S chedule XTRNL Referral to Outpatient Referral Routine Snoring Ord ered: Sleep Medicine 05/01/2021 documented as of this encounter Procedures Procedure Name Priority Date/Time Associated Diagnosis Comme nts ECG 12-LEAD Routine 05/01/2021 3:30 PM Palpitations Results for this PDT procedure are i n the results section . documented in this encounter Results ECG 12 Lead (Clinic - Same Day) (05/01/2021 3:30 PM PDT) Narrative Sara Ding, DO - 05/01/2021 3: 30 PM PDT This result has an attachment that is no t available. Result approved by Sapna Back on 05/01/21 documented in this encounter Visit Diagnoses Diagnosis Palpitations - Primary Essential hypertension Unspecified essential hypertension Dyslipidemia Other and unspecified hyperlipidemia BMI 40.0-44.9, adult ([facility]) Chest pain, unspecified type SOB (shortness of breath) Shortness of breath Snoring Other dyspnea and respiratory abnormalit y Diabetes mellitus type II, non insulin d ependent ([facility]) Type II or unspecified type diabetes aline litus without mention of complication, not stated as uncontrolled documented in this encounter Insurance Payer Benefit Plan / Subscriber ID Effective Dates Phone Addre ss Type Group [employer] [id number] 2017-Present [address] [address] [place] [address] [phone] [id number] (Work) documented as of this encounter Advance Directives Documents on File Type Date Recorded Patient Well Head Pumper Explanati on Advance Directives and Living Will Care Teams Ecommerce Marketing Specialist Relationship Specialty Start Date End Date Angelica Iverson PCP - General Family Medicine 03/13/[address] [place] [address] documented as of this encounter
== END 2019-06-29 20:45 | disposition home or self-care (01) ==
PROVIDERS: Emergency Provider Nurse Practitioner Family; PCP Physician Assistant
DX: J18.9 Pneumonia, unspecified organism (principal); R07.81 Pleurodynia; M54.9 Dorsalgia, unspecified
CPT/HCPCS: 71046; 87502; 94640; 99282; 99284; J7613

== ENCOUNTER 2022-12-15 15:57 | Emergency (ER) | payer OTHER, SELFPAY ==
--- NOTE | 2022-12-15 16:11 | ED.GENADULT ---
HPI - General Adult General Chief complaint: Abdominal Pain Stated complaint: lt side pain Time Seen by Provider: 12/15/22 16:10 History of Present Illness HPI narrative: 52-year-old female nonsmoker presents with a chief complaint relatively sudden onset left flank pain with loose stools over the weekend. Her pain came on suddenly and seems to wrap around her left flank. She states that there is always some basal amount of discomfort but it seems to get significantly worse and then improve without obvious provocation or palliation. She gets nauseated when the pain intensifies and then improves in the aftermath. She denies runny nose, sore throat or cough. She denies chest pain or shortness of breath. She is had no dysuria, frequency or urgency Related Data Home Medications Medication Instructions Recorded Confirmed celecoxib 50 mg capsule (Celebrex) 50 mg PO Q DAY ##0 02/04/17 Previous Rx's Medication Instructions Recorded albuterol sulfate 90 mcg/actuation 2 inhalation inhalation Q4-6H PRN 06/29/19 aerosol inhaler shortness of breath or wheezing #18 grams cephalexin 500 mg capsule 500 mg PO BID #14 caps 12/15/22 ketorolac 10 mg tablet 10 mg PO Q6H PRN pain #14 tabs 12/15/22 tamsulosin 0.4 mg capsule (Flomax) 0.4 mg PO DAILY #30 caps 12/15/22 Allergies Allergy/AdvReac Type Severity Reaction Status Date / Time morphine [MORPHINE] Allergy Severe emesis, Verified 06/03/18 18:05 dizzy Review of Systems Review of Systems Narrative: GENERAL: Denies chills, fatigue, malaise, fever, sweats. HEENT: Denies sinus pain, ear pain, sore throat, difficulty swallowing, dizziness. RESPIRATORY: Denies dyspnea, cough, wheezing, hemoptysis, sputum. CARDIOVASCULAR: Denies chest pain, palpitations, orthopnea, edema, GASTROINTESTINAL: See HP : See HPI MUSCULOSKELETAL: denies weakness, joint pain, or bony pain SKIN: Denies rash, skin lesions, or other NEUROLOGIC: Denies weakness, headache, numbness, change in speech, confusion, seizures, incoordination. PSYCHIATRIC: No concerning psychosocial issues. 12 point review of systems is negative except for those stated above Patient History Surgical History No pertinent past surgical history Social History Smoking Status: Never smoker Smoking Status: Never smoker Substance Use Type: does not use Exam Narrative Exam Narrative: GENERAL: [52] year old patient appears stated age. Well-developed patient, in mild distress. HEAD: Atraumatic. Normocephalic. EYES: Pupils equal round and reactive. Extraocular motions intact. No scleral icterus. No injection or drainage. ENT: Nose without bleeding, purulent drainage. Throat without erythema, tonsillar hypertrophy or exudate. Airway patent. NECK: Trachea midline. Non tender CARDIOVASCULAR: Regular rate and rhythm without murmurs, gallops, or rubs. RESPIRATORY: Clear to auscultation. Breath sounds equal bilaterally. No wheezes, rales, or rhonchi. GASTROINTESTINAL: Abdomen soft, non-tender, nondistended. EXTREMITIES: No edema or joint tenderness. BACK: Nontender without deformity or crepitance. No flank tenderness. NEURO: AOx3. SKIN: No rash or erythema of visible areas Initial Vital Signs Initial Vital Signs: Vital Signs Temperature 98.2 F 12/15/22 16:23 Pulse Rate 82 12/15/22 16:23 Respiratory Rate 18 12/15/22 16:23 Blood Pressure 116/69 12/15/22 16:23 Pulse Oximetry 97 12/15/22 16:23 Oxygen Delivery Method Room Air 12/15/22 16:23 Course Orders Ordered: Discontinued Medications Sodium Chloride (Normal Saline 0.9%) 1,000 mls @ 1,000 mls/hr IV BOLUS ONE Stop: 12/15/22 17:10 Last Infusion: 12/15/22 17:59 Dose: 0 mls/hr Documented By: Admin: 12/15/22 16:49 Dose: 1,000 mls/hr Documented By: JORDY Medical Decision Making Lab Data 12/15/22 16:15 12/15/22 16:15 Labs: Lab Results 12/15/22 12/15/22 12/15/22 Range/Units 16:15 16:15 18:11 WBC 9.3 (4.5-11.0) X10^3/uL RBC 4.66 (4.0-5.2) X10^6/uL Hgb 13.4 (12.0-16.0) g/dL Hct 39.1 (36-46) % MCV 84.0 (80-100) fL MCH 28.8 (26-34) PG MCHC 34.3 (30-36) % RDW 13.4 (11.6-14.8) % Plt Count 218 (150-400) X10^3/uL Neut % (Auto) 74.5 (50-75) % Lymph % (Auto) 17.9 L (25-40) % Miller % (Auto) 5.6 (3-14) % Eos % (Auto) 1.3 L (2-4) % Baso % (Auto) 0.7 (0-2) % Neut # (Auto) 7000 (4333-8401) /uL Lymph # (Auto) 1700 (8131-0131) /uL Miller # (Auto) 500 (0-900) /uL Eos # (Auto) 100 (0-450) /uL Baso # (Auto) 100 (0-100) /uL Sodium 137 (137-145) mmol/L Potassium 4.0 (3.4-5.1) mmol/L Chloride 106 (98-107) mmol/L Carbon Dioxide 22 (22-32) mmol/L BUN 14 (7-17) mg/dL Creatinine 0.81 (0.52-1.04) mg/dL Estimated GFR > 60 (>60) mL/min BUN/Creatinine Ratio 17.3 (6-22) Glucose 100 (70-100) mg/dL Calcium 8.6 (8.4-10.2) mg/dL Total Bilirubin 0.6 (0.2-1.3) mg/dL AST 27 (14-36) IU/L ALT 24 (<35) IU/L Alkaline Phosphatase 88 (38-126) U/L Total Protein 7.2 (6.3-8.2) g/dL Albumin 4.0 (3.5-5.0) g/dL Globulin 3.2 (1.7-4.1) g/dL Albumin/Globulin Ratio 1.3 (1.0-2.8) Urine RBC 10-30/hpf H (0-5/HPF) Urine WBC 1-5/hpf (0-5/HPF) Ur Squamous Epith Cells >30 /hpf H (0-5/HPF) Urine Bacteria Few (2-10) H (None) Ur Culture Indicated? Cult not indicated Urine Dip Bedside Urine Glucose Negative Bedside Urine Bilirubin - Negative Bedside Urine Ketone - Negative Urine Specific [place] 1.010 Bedside Urine Occult Blood ++ Bedside Urine pH 6.0 Bedside Urine Protein - Negative Bedside Urine Urobilinogen - Negative Bedside Urine Nitrite - Negative Bedside Urine Leukocytes - Negative Esterase Point of care testing: Urine Dip Bedside Urine Glucose Negative Bedside Urine Bilirubin - Negative Bedside Urine Ketone - Negative Urine Specific [place] 1.010 Bedside Urine Occult Blood ++ Bedside Urine pH 6.0 Bedside Urine Protein - Negative Bedside Urine Urobilinogen - Negative Bedside Urine Nitrite - Negative Bedside Urine Leukocytes - Negative Esterase MDM Narrative Medical decision making narrative: [52] year old patient presents with sudden onset left flank pain, colicky in nature Multiple etiologies for patient's symptoms considered including, but not limited to: [Kidney stone versus bowel obstruction versus urine infection versus other] Prior Charts reviewed in our EMR Primary Historian: patient Labs reviewed and interpreted by myself: No leukocytosis, left shift or signs of anemia, subtle suggestion of possible early urine infection Imaging reviewed: 4 mm stone with hydronephrosis Patient's symptoms improved over duration of stay with above-stated therapies. Patient has no signs of sepsis, no elevated white blood cell count, pain is well controlled and she is tolerating orals. Findings and discharge diagnosis discussed with patient/family followed by verbalization of understanding Return precautions discussed with patient/family whom verbalize understanding of diagnosis and plan Discharge Plan Departure Patient Disposition: Home Clinical Impression: Kidney stone on left side Instructions: DI for Kidney Stones Activity Restrictions/Additional Instructions: *You have been diagnosed with [left-sided 4 mm kidney stone] *What to do: *Please continue to take your regular medications as directed. [ x] New medication prescriptions sent to your pharmacy: [[facility] in [place] ] [ ] New medication written as a paper prescription [ ] No new medications given *Please follow up with your primary care provider in 2-3 days, call for an appointment. Let them know you were seen in the Emergency Department and that we ask that you be seen in follow up. We will electronically transmit a record of today's note if your PCP is in our system *If you do not have a primary care provider please contact the [facility] Resource line at [phone]. They will ask some questions about your medical history and help get you set up with a doctor in the community. *Return to Emergency Department if you should have any new, worsening or concerning symptoms, such as [fever greater than 101 F, shaking chills, worsening pain, persistent vomiting or other bothersome symptoms] Prescriptions: New ketorolac 10 mg tablet 10 mg PO Q6H PRN (Reason: pain) Qty: 14 0RF tamsulosin [Flomax] 0.4 mg capsule 0.4 mg PO DAILY Qty: 30 0RF cephalexin 500 mg capsule 500 mg PO BID Qty: 14 0RF No Action celecoxib [Celebrex] 50 MG capsule 50 mg PO Q DAY Qty: 0 albuterol sulfate 90 mcg/actuation HFA aerosol inhaler 2 inhalation INHALATION Q4-6H PRN (Reason: shortness of breath or wheezing) Qty: 18 0RF Referrals: Ashley Tran PA-C [Primary Care Provider] - Zac Solano MD [Physician] - Stand Alone Forms: Patient Portal/API
[2022-12-15 16:23] VITALS: BP 116/69; PULSE 82; RESP 18; TEMP 36.8; O2SAT 97; BMI 39.5
[2022-12-15 16:24] LABS: Add Manual Diff / Slide Review NO; Basophils Absolute Auto 100 /uL (0-100); Basophils Percent Auto 0.7 % (0-2); Eosinophils Absolute Auto 100 /uL (0-450); Eosinophils Percent Auto 1.3 % (2-4); Hematocrit 39.1 % (36-46); Hemoglobin 13.4 g/dL (12.0-16.0); Lymphocytes Absolute Auto 1700 /uL (1100-4500); Lymphocytes Percent Auto 17.9 % (25-40); Mean Corpuscular HGB Conc 34.3 % (30-36); Mean Corpuscular Hemoglobin 28.8 PG (26-34); Monocytes Absolute Auto 500 /uL (0-900); Monocytes Percent Auto 5.6 % (3-14); Neutrophils Absolute Auto 7000 /uL (1500-7000); Neutrophils Percent Auto 74.5 % (50-75); Platelet Count 218 X10^3/uL (150-400); Red Blood Cell Count 4.66 X10^6/uL (4.0-5.2); Red Cell Distribution Width 13.4 % (11.6-14.8); White Blood Cell Count 9.3 X10^3/uL (4.5-11.0)
[2022-12-15 16:46] LABS: Alanine Aminotransferase 24 IU/L (<35); Albumin Globulin Ratio 1.3 (1.0-2.8); Alkaline Phosphatase 88 U/L (38-126); Aspartate Aminotransferase 27 IU/L (14-36); BUN Creatinine Ratio 17.3 (6-22); Bilirubin Total 0.6 mg/dL (0.2-1.3); Blood Urea Nitrogen 14 mg/dL (7-17); Calcium 8.6 mg/dL (8.4-10.2); Carbon Dioxide 22 mmol/L (22-32); Chloride 106 mmol/L (98-107); Estimated Glomerular Filt Rate > 60 mL/min (>60); Globulin 3.2 g/dL (1.7-4.1); Glucose 100 mg/dL (70-100); HEMOLYSIS 46 (0-50); Sodium 137 mmol/L (137-145); Total Protein 7.2 g/dL (6.3-8.2)
[2022-12-15] MEDS: SODIUM CHLORIDE 0.9% 1,000 ML 1000 ML IV (16:49)
[2022-12-15 17:55] VITALS: PULSE 74; O2SAT 100
--- NOTE | 2022-12-15 17:59 | DI.CT.S_ITS ---
PROCEDURE: CT ABDOMEN PELVIS W CON INDICATIONS: severe LL flank pain TECHNIQUE: After the administration of intravenous contrast, axial sections acquired from the lung bases to the pubic symphysis. Coronal and sagittal reformats were performed. For radiation dose reduction, the following was used: automated exposure control, adjustment of mA and/or kV according to patient size. COMPARISON: [facility], CT, CT ABDOMEN PELVIS W CON, 06/22/2019, 15:19. FINDINGS: Image quality: Excellent. Lung bases: Lung bases are clear. Heart: No significant findings. ABDOMEN: Liver: Unremarkable. Gallbladder: Gallbladder contains a few dependent gallstones. No CT evidence for acute cholecystitis. Biliary ducts: Unremarkable. Pancreas: Unremarkable. Spleen: Mild splenomegaly. Adrenal Glands: Unremarkable. Kidneys and Ureters: Right kidney is unremarkable in appearance. No hydronephrosis or renal stones. There is a 4 mm obstructing stone noted in the proximal left ureter with associated mild left hydronephrosis and mild dilatation of the left renal pelvis. The left ureter distal to the stone is unremarkable in course and caliber. Stomach and Bowel: Stomach, small bowel loops, and colon are unremarkable. Visualized appendix appears within normal limits. Peritoneum: No abnormal intraperitoneal fluid. No free air. Ventral Wall: There is a fat-containing umbilical hernia without acute inflammation. Abdominal Nodes: No retroperitoneal or mesenteric adenopathy by size criteria. Vessels: Aorta and inferior vena cava are normal in size. PELVIS: Pelvic Organs: Status post hysterectomy. Bladder: Urinary bladder is unremarkable in appearance. No urinary bladder stone. Pelvic Nodes: No enlarged lymph nodes. Miscellaneous: No inguinal hernias are seen. Bones: No acute vertebral body compression fractures. Multilevel spondylitic changes throughout the imaged spine. No suspicious osseous lesions. IMPRESSION: 1. Obstructing 4 mm proximal left ureteral stone with associated mild left hydronephrosis. Minimal perinephric stranding. Recommend correlating with possible concurrent infectious uropathy symptoms. 2. Cholelithiasis without CT evidence for acute cholecystitis. 3. Fat containing umbilical hernia without acute inflammation. 4. Multilevel spondylosis. 5. Status post hysterectomy. Dictated by: Blue Cooper M.D. on 12/15/2022 at 18:37 Approved by: Blue Cooper M.D. on 12/15/2022 at 18:43
[2022-12-15 18:00] VITALS: BP 109/55; PULSE 75; O2SAT 100
[2022-12-15 18:30] VITALS: PULSE 79; O2SAT 100
[2022-12-15 18:57] LABS: Bacteria Urine Few (2-10); Culture Indicated Urine Cult Not Indicated; RBC Urine 10-30/HPF (0-5/HPF); Squamous Epithelial Cell Urine >30 /HPF (0-5/HPF); WBC Urine 1-5/HPF (0-5/HPF)
[2022-12-15 19:00] VITALS: PULSE 73; O2SAT 100
[2022-12-15 19:30] VITALS: PULSE 68; O2SAT 99
== END 2022-12-15 19:42 | disposition home or self-care (01) ==
PROVIDERS: Emergency Provider Emergency Medicine; PCP Physician Assistant
DX: N20.0 Calculus of kidney (principal); R11.0 Nausea
CPT/HCPCS: 36415; 74177; 80053; 81003; 81015; 85025; 99284; Q9967

== ENCOUNTER 2023-06-26 21:00 | Emergency (ER) | payer OTHER, SELFPAY ==
[2023-06-26] VITALS (8 sets, daily range): BP systolic 102–140; BP diastolic 69–84; PULSE 81–99; RESP 16–20; TEMP 37.1; O2SAT 93–100; BMI 35.0
--- NOTE | 2023-06-26 21:26 | DI.RAD.S_ITS ---
PROCEDURE: XR CHEST 1V INDICATIONS: chest pain TECHNIQUE: One view of the chest was acquired. COMPARISON: [facility], CR, XR CHEST 2V, 06/29/2019, 18:19. FINDINGS: Surgical changes and devices: None. Lungs and pleura: Lungs are clear. No pleural effusions or pneumothorax. Mediastinum: Mediastinal contours appear normal. Heart size is normal. Bones and chest wall: No suspicious bony lesions. Overlying soft tissues appear unremarkable. IMPRESSION: No acute cardiopulmonary pathology. Dictated by: Mark Ro M.D. on 06/26/2023 at 21:39 Approved by: Mark Ro M.D. on 06/26/2023 at 21:39
--- NOTE | 2023-06-26 21:39 | ED_ITS ---
HPI - Chest Pain General Chief Complaint: Chest Pain Stated Complaint: Chest Pain, Dyspnea SOB Time Seen by Provider: 06/26/23 21:30 Source: patient Mode of arrival: Ambulatory Limitations: no limitations History of Present Illness HPI narrative: Patient 52-year-old female history of asthma, type 2 diabetes presenting today with chest pain. She reports that around 6:00 a.m. she started having some sharp stabbing chest pain worse when she leans forward or lays back sitting upright is okay. Sometimes she feels like she is short of breath. No palpitations. No prior history of coronary artery disease. She denies any fever chills or cough. No abdominal pain nausea or vomiting. She felt like she was wheezing earlier in the day took albuterol inhaler but says that it just did not help. Related Data Home Medications Medication Instructions Recorded Confirmed celecoxib 50 mg capsule (Celebrex) 50 mg PO Q DAY ##0 02/04/17 Previous Rx's Medication Instructions Recorded albuterol sulfate 90 mcg/actuation 2 inhalation inhalation Q4-6H PRN 06/29/19 aerosol inhaler shortness of breath or wheezing #18 grams cephalexin 500 mg capsule 500 mg PO BID #14 caps 12/15/22 ketorolac 10 mg tablet 10 mg PO Q6H PRN pain #14 tabs 12/15/22 tamsulosin 0.4 mg capsule (Flomax) 0.4 mg PO DAILY #30 caps 12/15/22 ibuprofen 800 mg tablet 800 mg PO Q8H #90 tabs 06/26/23 Allergies Allergy/AdvReac Type Severity Reaction Status Date / Time morphine [MORPHINE] Allergy Severe emesis, Verified 06/03/18 18:05 dizzy Patient History Surgical History No pertinent past surgical history Social History Smoking Status: Never smoker Smoking Status: Never smoker alcohol intake frequency: 0-2 drinks per day Substance Use Type: does not use Exam Initial Vital Signs Initial Vital Signs: Vital Signs Pulse Rate 99 H 06/26/23 21:09 Pulse Oximetry 98 06/26/23 21:09 GENERAL: Alert well-appearing 52-year-old female HEENT: Head atraumatic,EOMI, pupils reactive, face symmetric, moist mucous membranes CARDIOVASCULAR: Regular rate and rhythm without murmurs, rubs or gallops. No murmur not reproducible RESPIRATORY: Breath sounds equal bilaterally, no wheezes rales or rhonchi. ABDOMEN: Soft, nontender. Normoactive bowel sounds all 4 quadrants. No guarding or rebound. EXTREMITIES: Normal range of motion, no clubbing or edema. Neurovascularly intact NEUROLOGICAL: Alert and oriented x4 SKIN: Warm, dry, no laceration, no petechiae, no rashes or lesions. Course Orders Ordered: ED Orders 06/26/23 21:15 CRP [C-Reactive Protein Quant] Stat Complete Blood Count AUTO DIFF Stat Comprehensive Metabolic Panel Stat ESR [Erythrocyte Sedimentation Rate] Stat Lipase Stat Magnesium Stat PTT Partial Thromboplastin Thien Stat Prothrombin Time INR Stat Troponin & CK Cardiac Panel Stat 06/26/23 21:26 XR chest 1V Stat EKG-12 Lead Stat 06/26/23 22:10 Urine Microscopic Stat Discontinued Medications Aspirin (Aspirin 81 Mg Chew Tab) 324 mg PO NOW ONE Stop: 06/26/23 21:27 Last Admin: 06/26/23 21:40 Dose: 324 mg Documented By: CASANDRA Ketorolac Tromethamine (Ketorolac 30 Mg/Ml Vial) 15 mg IV NOW ONE Stop: 06/26/23 21:48 Last Admin: 06/26/23 21:55 Dose: 15 mg Documented By: ES Vital Signs Vital signs: Vital Signs - 8 hr 06/26/23 21:09 06/26/23 21:10 06/26/23 21:30 Temperature 98.7 F Pulse Rate 99 H 99 H 98 H Respiratory Rate 18 Blood Pressure 140/75 Pulse Oximetry 98 100 97 Oxygen Delivery Method Room Air 06/26/23 21:37 06/26/23 21:37 06/26/23 22:03 Temperature Pulse Rate 96 H 92 H Respiratory Rate 18 Blood Pressure 117/83 Pulse Oximetry 95 93 Oxygen Delivery Method 06/26/23 22:04 06/26/23 22:04 06/26/23 22:30 Temperature Pulse Rate 92 H 87 Respiratory Rate 18 20 Blood Pressure 116/84 Pulse Oximetry 99 96 Oxygen Delivery Method Room Air 06/26/23 22:30 06/26/23 23:00 06/26/23 23:00 Temperature Pulse Rate 81 Respiratory Rate 16 Blood Pressure 111/75 102/69 Pulse Oximetry 98 Oxygen Delivery Method Room Air [facility] Chest Pain Lab Data 06/26/23 21:15 06/26/23 21:15 Labs: Lab Results 06/26/23 06/26/23 Range/Units 21:15 22:10 WBC 10.3 (4.5-11.0) X10^3/uL RBC 4.67 (4.0-5.2) X10^6/uL Hgb 13.4 (12.0-16.0) g/dL Hct 39.7 (36-46) % MCV 85.1 (80-100) fL MCH 28.7 (26-34) PG MCHC 33.8 (30-36) % RDW 13.5 (11.6-14.8) % Plt Count 208 (150-400) X10^3/uL Neut % (Auto) 62.8 (50-75) % Lymph % (Auto) 28.9 (25-40) % Whitman % (Auto) 7.1 (3-14) % Eos % (Auto) 0.6 L (2-4) % Baso % (Auto) 0.6 (0-2) % Neut # (Auto) 6400 (1057-6784) /uL Lymph # (Auto) 3000 (0331-9163) /uL Whitman # (Auto) 700 (0-900) /uL Eos # (Auto) 100 (0-450) /uL Baso # (Auto) 100 (0-100) /uL ESR 22 H (0-20) MM/HR PT 12.8 H (10.1-12.7) SECONDS INR 1.1 (0.9-1.3) APTT 34 (26-36) SECONDS Sodium 139 (137-145) mmol/L Potassium 3.3 L (3.4-5.1) mmol/L Chloride 104 (98-107) mmol/L Carbon Dioxide 26 (22-32) mmol/L BUN 11 (7-17) mg/dL Creatinine 0.76 (0.52-1.04) mg/dL Estimated GFR > 60 (>60) mL/min BUN/Creatinine Ratio 14.5 (6-22) Glucose 97 (70-100) mg/dL Calcium 9.5 (8.4-10.2) mg/dL Magnesium 1.7 (1.6-2.3) mg/dL Total Bilirubin 0.7 (0.2-1.3) mg/dL AST 20 (14-36) IU/L ALT 14 (<35) IU/L Alkaline Phosphatase 83 (38-126) U/L Total Creatine Kinase 33 (30-135) U/L Troponin I < 0.012 (0.01-0.034) ng/mL C-Reactive Protein 4.9 H (<1.0) mg/dL Total Protein 7.6 (6.3-8.2) g/dL Albumin 4.2 (3.5-5.0) g/dL Globulin 3.4 (1.7-4.1) g/dL Albumin/Globulin Ratio 1.2 (1.0-2.8) Lipase 79 (23-300) U/L Urine RBC 0-1/hpf D (0-5/HPF) Urine WBC None seen (0-5/HPF) Ur Squamous Epith Cells 0-1 /hpf D (0-5/HPF) Urine Bacteria None seen (None) Ur Culture Indicated? Cult not indicated Point of Care Testing Glucose POC 93 Urine Dip Bedside Urine Glucose Negative Bedside Urine Bilirubin + 1 Bedside Urine Ketone - Negative Urine Specific [place] 1.005 Bedside Urine Occult Blood - Negative Bedside Urine pH 8.5 Bedside Urine Protein - Negative Bedside Urine Urobilinogen - Negative Bedside Urine Nitrite - Negative Bedside Urine Leukocytes +/- 15 Esterase Imaging Data Chest x-ray: Radiologist's Impression: PROCEDURE: XR CHEST 1V INDICATIONS: chest pain TECHNIQUE: One view of the chest was acquired. COMPARISON: [facility], , XR CHEST 2V, 06/29/2019, 18:19. FINDINGS: Surgical changes and devices: None. Lungs and pleura: Lungs are clear. No pleural effusions or pneumothorax. Mediastinum: Mediastinal contours appear normal. Heart size is normal. Bones and chest wall: No suspicious bony lesions. Overlying soft tissues appear unremarkable. IMPRESSION: No acute cardiopulmonary pathology. Dictated by: Mark Ro M.D. on 06/26/2023 at 21:39 ECG Data Interpretation: Normal sinus rhythm rate 63 ND interval 1 8 QRS [address] elevation no peaked T-waves no ND depression voltage within normal limits MDM Narrative Medical decision making narrative: Patient 52-year-old female history of diabetes hypertension presenting today with chest pain. It is definitely positional worse when leaning forward and lying back. EKG does not show any is office ST elevation ND depression or signs of pericarditis but does sound like an inflammatory process. She has no fever leukocytosis or evidence of infection her chest rate x-ray is clear. Blood work is overall reassuring however she have elevated inflammatory markers. Symptoms are concerning for pericarditis EKG does not show any changes. She got Toradol she was finally able to sleep she says she feels a lot better. At this time we will treat her like pericarditis with NSAIDs discuss with her that she will need to follow up. Discharge Plan Departure Patient Disposition: Home Clinical Impression: Pericarditis Instructions: Pericarditis -- Adult Activity Restrictions/Additional Instructions: *You have been diagnosed with pericarditis *What to do: At this time I think you have inflammatory symptoms consistent with pericarditis. This should resolve Ibuprofen 800 mg every 8 hours her about 1-2 weeks, dont take with celebrex *Follow up with your primary care provider in 2-3 days or call [phone] *Return to ER if you should have increasing chest pain fever shortness of breath or any new, worsening or concerning symptoms Prescriptions: New ibuprofen 800 mg tablet 800 mg PO Q8H Qty: 90 0RF No Action celecoxib [Celebrex] 50 MG capsule 50 mg PO Q DAY Qty: 0 ketorolac 10 mg tablet 10 mg PO Q6H PRN (Reason: pain) Qty: 14 0RF tamsulosin [Flomax] 0.4 mg capsule 0.4 mg PO DAILY Qty: 30 0RF cephalexin 500 mg capsule 500 mg PO BID Qty: 14 0RF albuterol sulfate 90 mcg/actuation HFA aerosol inhaler 2 inhalation INHALATION Q4-6H PRN (Reason: shortness of breath or wheezing) Qty: 18 0RF Referrals: Vera Broderick DO [Primary Care Provider] - Stand Alone Forms: Patient Portal/API
[2023-06-26] MEDS: ASPIRIN 81 MG CHEW TAB 324 MG PO (21:40)
[2023-06-26 21:41] LABS: Add Manual Diff / Slide Review NO; Basophils Absolute Auto 100 /uL (0-100); Basophils Percent Auto 0.6 % (0-2); Eosinophils Absolute Auto 100 /uL (0-450); Eosinophils Percent Auto 0.6 % (2-4); Hematocrit 39.7 % (36-46); Hemoglobin 13.4 g/dL (12.0-16.0); Lymphocytes Absolute Auto 3000 /uL (1100-4500); Lymphocytes Percent Auto 28.9 % (25-40); Mean Corpuscular HGB Conc 33.8 % (30-36); Mean Corpuscular Hemoglobin 28.7 PG (26-34); Mean Corpuscular Volume 85.1 fL (80-100); Monocytes Absolute Auto 700 /uL (0-900); Monocytes Percent Auto 7.1 % (3-14); Neutrophils Absolute Auto 6400 /uL (1500-7000); Neutrophils Percent Auto 62.8 % (50-75); Platelet Count 208 X10^3/uL (150-400); Red Blood Cell Count 4.67 X10^6/uL (4.0-5.2); Red Cell Distribution Width 13.5 % (11.6-14.8); White Blood Cell Count 10.3 X10^3/uL (4.5-11.0)
[2023-06-26 21:54] LABS: Alanine Aminotransferase 14 IU/L (<35); Albumin 4.2 g/dL (3.5-5.0); Albumin Globulin Ratio 1.2 (1.0-2.8); Alkaline Phosphatase 83 U/L (38-126); Aspartate Aminotransferase 20 IU/L (14-36); BUN Creatinine Ratio 14.5 (6-22); Bilirubin Total 0.7 mg/dL (0.2-1.3); Blood Urea Nitrogen 11 mg/dL (7-17); Calcium 9.5 mg/dL (8.4-10.2); Carbon Dioxide 26 mmol/L (22-32); Chloride 104 mmol/L (98-107); Creatine Kinase 33 U/L (30-135); Estimated Glomerular Filt Rate > 60 mL/min (>60); Globulin 3.4 g/dL (1.7-4.1); Glucose 97 mg/dL (70-100); HEMOLYSIS < 15 (0-50); Lipase 79 U/L (23-300); Magnesium 1.7 mg/dL (1.6-2.3); Potassium 3.3 mmol/L (3.4-5.1); Sodium 139 mmol/L (137-145); Total Protein 7.6 g/dL (6.3-8.2)
[2023-06-26] MEDS: KETOROLAC 30 MG/ML VIAL 15 MG IV (21:55)
[2023-06-26 22:05] LABS: Troponin I < 0.012 ng/mL (0.01-0.034)
[2023-06-26 22:08] LABS: C-Reactive Protein Quant 4.9 mg/dL (<1.0)
[2023-06-26 22:10] LABS: INR 1.1 (0.9-1.3); Prothrombin Time 12.8 SECONDS (10.1-12.7)
[2023-06-26 22:11] LABS: Erythrocyte Sedimentation Rate 22 MM/HR (0-20)
[2023-06-26 22:13] LABS: PTT Partial Thromboplastin Tim 34 SECONDS (26-36)
[2023-06-26 22:34] LABS: Bacteria Urine None Seen; Culture Indicated Urine Cult Not Indicated; RBC Urine 0-1/HPF (0-5/HPF); Squamous Epithelial Cell Urine 0-1 /HPF (0-5/HPF); WBC Urine None Seen (0-5/HPF)
== END 2023-06-26 23:24 | disposition home or self-care (01) ==
PROVIDERS: Emergency Provider Emergency Medicine; PCP Family Medicine
DX: I31.9 Disease of pericardium, unspecified (principal); R07.9 Chest pain, unspecified
CPT/HCPCS: 36415; 71045; 80053; 81003; 81015; 82550; 82962; 83690; 83735; 84484; 85025; 85610; 85651; 85730; 86140; 93005; 96374; 99284; J1885